=== PATIENT | female | born 2000 | race Caucasian/White ===

== ENCOUNTER 2024-10-25 22:19 | Emergency (ER) | payer MEDICAID, SELFPAY ==
[2024-10-25 22:19] VITALS: BMI 24.3
[2024-10-25 22:25] VITALS: BP 130/76; PULSE 93; RESP 19; TEMP 36.9; O2SAT 97
--- NOTE | 2024-10-25 22:25 | XR_ITS ---
EXAMINATION: Ankle, right 3 views . Technique: Ankle AP, oblique, lateral 3 views Date and time of exam: October 25, 2024 1035 hours INDICATIONS: Twisting injury to the ankle today, ankle pain. FINDINGS: No acute fracture No dislocation No foreign body IMPRESSION: No acute fracture
--- NOTE | 2024-10-25 22:35 | XR_ITS ---
Examination: Foot, right, 3 views Technique: AP, oblique, lateral views foot, 3 views Date and time of exam: October 25, 2024 at 1035 hours INDICATIONS: Twisting injury to the foot today, foot pain. FINDINGS: No acute fracture Or dislocation No foreign body IMPRESSION: No acute fracture
--- NOTE | 2024-10-25 22:37 | PD.EDANKLE ---
Lower Extremity Injury RME/HPI General Chief Complaint: Ankle/Foot Injury Stated Complaint: R ANKLE PAIN Time Seen by Provider: 10/25/24 22:36 Arrival date/time: 10/25/24 22:19 24F with no significant PMH presents to ED with R ankle/foot pain after she twisted it. She heard a popping sound. Limitations: no limitations Related Data Previous Rx's ?Medication ?Instructions ?Recorded vit no.95-ferrous 1 tab PO QDAY #30 tabs 10/02/22 fumarate 28 mg-folic acid 800 mcg tablet ( Multivitamins) Allergies Allergy/AdvReac Type Severity Reaction Status Date / Time No Known Allergies Allergy Verified 10/25/24 22:22 Review of Systems Review of Systems Systems Reviewed: All systems reviewed, normal except as documented Constitutional Constitutional: Reports system reviewed and no additional complaints, except as documented, Denies fever(s) and Denies headache(s) ENT Ears, Nose, Mouth, and Throat: Denies disequilibrium and Denies headache(s) Cardiovascular Cardiovascular: Reports system reviewed and no additional complaints, except as documented, Denies chest pain and Denies dyspnea Respiratory Respiratory: Reports system reviewed and no additional complaints, except as documented, Denies cough and Denies dyspnea Gastrointestinal Gastrointestinal: Reports system reviewed and no additional complaints, except as documented, Denies abdominal pain, Denies nausea and Denies vomiting Musculoskeletal Musculoskeletal: Reports as per HPI, Reports arthralgias and Reports joint swelling Neurologic Neurologic: Reports system reviewed and no additional complaints, except as documented, Denies confusion, Denies disequilibrium and Denies headache(s) Psychiatric Psychiatric: Denies confusion Past Medical History Past Medical History NEUROLOGIC: Negative Neurological Disorders CARDIAC: Negative Cardiac Disorders or Congestive Heart Failure RESPIRATORY: Negative Chronic Obstructive Pulmonary Disease (COPD) or Asthma GASTROINTESTINAL: Negative Gastrointestinal Disorders GENITOURINARY: Negative Genitourinary Disorders or Renal Disease REPRODUCTIVE: Negative Previous Pregnancies MUSCULOSKELETAL: Negative Musculoskeletal Disorders ENDOCRINE: Negative Endocrine Disorders, Diabetes Mellitus Type 1 or Diabetes Mellitus Type 2 HEMATOLOGIC: Negative Blood Disorders or Anemia PSYCHO/SOCIAL: Positive Recreational Drug Use (THC); Negative Depression OTHER HISTORY: Negative Hospitalization, Autoimmune Disease, Falls, Blood Transfusions, Blood Transfusion Reaction or Anesthesia Reactions Family History FAMILY HISTORY: Negative Family Psychiatric Problems, Family Respiratory Disorders, Family Cardiac Disorders, Family Gastrointestinal Problems, Family Cancer, Family Surgery or Family Anesthesia Reaction Surgical History SURGICAL: Negative Section Social History SMOKING STATUS: Current every day smoker ED Exam General Limitations: Present no limitations General appearance: Present alert and in no apparent distress Head Head exam: Present atraumatic Eye Eye exam: Present normal appearance, PERRL and EOMI ENT ENT exam: Present normal exam, normal oropharynx and mucous membranes moist Neck Neck exam: Present normal inspection, full ROM and trachea midline Chest Chest inspection: Present normal inspection and symmetric chest wall rise Respiratory Respiratory exam: Present normal lung sounds bilaterally Cardiovascular Cardiovascular exam: Present regular rate, normal rhythm and normal heart sounds Abdominal Exam Abdominal exam: Present soft and normal bowel sounds Extremities Exam Extremities exam: Present full ROM Expanded Lower Extremity Exam Ankle exam: Present full ROM, tenderness, swelling and ecchymosis Foot/toe exam: Present full ROM, tenderness, swelling and ecchymosis Back Exam Back exam: Present normal inspection and full ROM Neurological Exam Neurological exam: Present alert, oriented X3 and CN II-XII intact Psychiatric Psychiatric exam: Present normal affect and normal mood Skin Skin exam: Present warm, dry, intact and normal color Course Quality Measures none Orders Category Date Time Status Crutches .NOW Care 10/26/24 00:11 Active Splint / Immobilizer STAT Care 10/26/24 00:[address] foot RT wo con Stat Exams 10/25/24 23:31 Completed XR ankle comp RT min 3V Stat Exams 10/25/24 22:25 Completed XR foot comp RT min 3V Stat Exams 10/25/24 22:35 Completed HYDROcodone*/APAP 5/325 [[place] 5/325] Med 10/25/24 23:07 Discontinued 1 tab PO X1 ONE Naproxen [Naprosyn] Med 10/25/24 22:42 Discontinued 500 mg PO X1 ONE Vital Signs Vital signs: Vital Signs Temperature 98.4 F 10/25/24 22:25 Pulse Rate 93 10/25/24 22:25 Respiratory Rate 19 10/25/24 22:25 Blood Pressure 130/76 10/25/24 22:25 Pulse Oximetry (%) 97 10/25/24 22:25 Oxygen Delivery Method Room Air 10/25/24 22:25 O2 at 97% on RA and WNLs Extremity Injury, Lower MDM Narrative MDM Narrative:: 24F with no significant PMH presents to ED with R ankle/foot pain after she twisted it. She heard a popping sound. Physical exam reveals significant R lower ankle/foot swelling, tenderness, and bruising. ROM mostly intact. Patient is afebrile, calm, and alert. XR no fx. CT calcaneus fx. Given splint and compliance counsel to go to scheduled ortho appointment with Dr. Templeton on at 10 AM. Patient data External records reviewed:: [facility] previous records Clinical information provided by:: patient Social determinants that could affect healthcare access:: none Patient has the following chronic illnesses:: none How is presenting disease/condition affected by chronic disease/condition?: no chronic disease Evaluation data The following diagnostics were reviewed and interpreted by me:: radiology exam(s) Lab and/or radiology exams considered but not ordered:: ordered Interpretation Summary: above Medications / Prescriptions Medications or Prescriptions considered but not ordered:: not ordered Medication administrations:: Medication Administration History Discontinued Medications Hydrocodone Bitart/Acetaminophen (Hydrocodone/Apap 5/325 Tablet) 1 tab PO X1 ONE Stop: 10/25/24 23:08 Last Admin: 10/25/24 23:19 Dose: 1 tab Documented By: Naproxen (Naproxen 250 Mg Tablet) 500 mg PO X1 ONE Stop: 10/25/24 22:43 Last Admin: 10/25/24 22:45 Dose: 500 mg Documented By: n/a Consultations Consultation(s) initiated? (list below): No Diagnosis Extremity Injury, Lower Differential Diagnosis: ankle sprain and strain, acute internal derangement of knee, fracture of toe, ankle fracture and other (foot fx) Most likely diagnosis given after review of the tests above:: foot fx Admission Indicated Admission indicated?: not indicated Admission Request Was there a request for admission?: No Disposition Plan Disposition Plan: Discharge Discharge Attestation Discharge Attestation: The patient and all family members were given an opportunity to ask questions and understood the discharge instructions. Discharge instructions specifically effects, indications for sooner follow up or return to the emergency department, and the expected course of current diagnosis. Patient condition: Stable Discharge Plan Plan Patient Disposition: HOME (Self Care) Disposition Comment: Stable Prescriptions/Referrals Prescriptions/Med Rec: No Action PNV cmb#95-ferrous fumarate-FA [ Multivitamins] 28 mg iron- 800 mcg tablet 1 tab PO QDAY Qty: 30 0RF Referrals: Carlos Enrique Templeton MD [Physician] - 10/26/24 10:00 am Problem List Clinical Impression: Foot fracture Patient/Caregiver Discharge Instructions Education Materials: ED Fracture, Foot Additional Instructions: Please follow-up with PCP within 24-48 hours and return immediately if symptoms worsen. Please go to scheduled ortho appointment with Dr. Templeton on at 10 AM. 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 Print Language: Maori Stand Alone Forms: Rose Award Info., Patient Portal Info Letter PA/PHOTOGRAPHIC EDITOR Supervising Physician PA/PHOTOGRAPHIC EDITOR Supervising Physician: Dr. Olmtsead
[2024-10-25] MEDS: NAPROXEN 250 MG TABLET 500 MG PO (22:45)
[2024-10-25] MEDS: HYDROcodone/APAP 5/325 TABLET 1 TAB PO (23:19)
--- NOTE | 2024-10-25 23:31 | XR_ITS ---
Examination: CT right foot, without contrast. 2-D sagittal reconstructions. 2-D coronal reconstructions. 3-D reconstructions. Date and time of exam:October 25, 2024 at 11:45 PM INDICATIONS: Injury to the foot today, foot pain CTDI: vol (mGy):4.81 DLP: (mGycm):150 Technique: Multiple 1.25 mm axial sections of the right foot have been obtained. 2-D sagittal and coronal reconstructions have been obtained. 3-D reconstructions have been obtained. Low dose protocols were performed. One or more of the following dose reduction techniques were used; automated exposure control, adjustment of the mA and/or KV according to patient size, use of iterative reconstruction technique. Findings: Tibia fibula intact. Small fractures anterior calcaneus, axial image 59 through 56 at the anterior superior margin Small cystic area at the anterior dorsal surface of the talus, fracture at this site also not excluded Cuboid navicular and cuneiforms intact No Lisfranc tarsometatarsal dislocations No opaque foreign body IMPRESSION: Acute comminuted fractures at the anterior superior margin of the calcaneus Small cystic area at the anterior dorsal surface of the talus, sagittal image 33, nondisplaced fracture at this site also not excluded
== END 2024-10-26 01:05 | disposition home or self-care (01) ==
LOC: SERX 10-26 00:33
PROVIDERS: Emergency Provider Emergency Medicine; PCP Family Medicine
DX: S92.021A Displaced fracture of anterior process of right calcaneus, initial encounter for closed fracture (principal); X50.1XXA Overexertion from prolonged static or awkward postures, initial encounter
CPT/HCPCS: 73610; 73630; 73700; 99284; A9270